=== PATIENT | female | born 1945 | race Caucasian/White ===

== ENCOUNTER 2021-07-07 15:08 | Outpatient (CLI) | payer MEDICARE | END 2021-07-07 15:09 | disposition home or self-care (01) | LOC: CSHMAMMO 15:08 | PROVIDERS: ATTEND Specialist | DX: Z12.31 Encounter for screening mammogram for malignant neoplasm of breast (principal) | CPT/HCPCS: 77063; 77067 ==

== ENCOUNTER 2022-08-19 14:21 | Outpatient (CLI) | payer MEDICARE | END 2022-08-19 14:22 | disposition home or self-care (01) | LOC: CSHMAMMO 14:21 | PROVIDERS: ATTEND Specialist | DX: Z12.31 Encounter for screening mammogram for malignant neoplasm of breast (principal); R92.2 Inconclusive mammogram; Q83.8 Other congenital malformations of breast | CPT/HCPCS: 77063; 77067 ==

== ENCOUNTER 2024-09-29 10:55 | Outpatient (CLI) | payer MEDICARE | END 2024-09-29 10:56 | disposition home or self-care (01) | LOC: CSHMAMMO 10:55 | PROVIDERS: ATTEND Specialist | DX: Z12.31 Encounter for screening mammogram for malignant neoplasm of breast (principal) | CPT/HCPCS: 77063; 77067 ==